=== PATIENT | male | born 1995 ===

== ENCOUNTER 2019-03-04 18:13 | Emergency (ER) | payer OTHER ==
--- NOTE | 2019-03-04 18:21 | UC ---
Complaint Male HPI - HPI Summary HPI Summary: 24 yo male presents with left testicle swelling. He tells me that 1 week ago he was playing basketball and had an inadvertent hand swat him in his testicles. Had immediate pain that only lasted a few minutes and he felt better. Did not have any pain, swelling, or urinary issues until 2 days ago when he noticed some mild left testicle and cord pain and he feels his left testicle is swollen. He has been sexually active over the last few weeks, but has been using condoms. Denies fever, chills, inguinal pain, dysuria, hematuria, penile discharge. - History of Current Complaint Chief Complaint: UCLowerExtremity Stated Complaint: GROIN COMPLAINT Time Seen by Provider: 03/04/19 18:21 Hx Obtained From: Patient Onset/Duration: Gradual Onset Severity Initially: Mild Severity Currently: Mild Pain Intensity: 2 Pain Scale Used: 0-10 Numeric - Allergies/Home Medications Allergies/Adverse Reactions: Allergies Allergy/AdvReac Type Severity Reaction Status Date / Time No Known Allergies Allergy Verified 03/04/19 18:22 Home Medications: Home Medications Thyroid,Pork [Penrose Thyroid] 60 mg PO 03/04/19 [History] PMH/Surg Hx/FS Hx/Imm Hx Endocrine History: Hypothyroidism - Surgical History Surgical History: None - Family History Known Family History: Positive: Non-Contributory - Social History Occupation: Student Lives: Dormitory/Roommates Alcohol Use: Occasionally Substance Use Type: None Smoking Status (MU): Never Smoked Tobacco Review of Systems All Other Systems Reviewed And Are Negative: No Constitutional: Positive: Negative Skin: Positive: Negative Respiratory: Positive: Negative Cardiovascular: Positive: Negative Genitourinary: Positive: Other - Testicular pain Neurovascular: Positive: Negative Neurological: Positive: Negative Psychological: Positive: Negative Physical Exam - Summary Physical Exam Summary: GENERAL: NAD. WDWN. No pain distress. SKIN: No rashes, sores, lesions, or open wounds. NECK: Supple. Nontender. No lymphadenopathy. CHEST: CTAB. No r/r/w. No accessory muscle use. Breathing comfortably and in no distress. CV: RRR. Without m/r/g. Pulses intact. Cap refill <2seconds ABDOMEN: Soft. NTTP. NEURO: Alert. PSYCH: Age appropriate behavior. Triage Information Reviewed: Yes Vital Signs: Vital Signs: Temp Pulse Resp BP Pulse Ox 99.0 F 73 18 152/97 100 03/04/19 18:17 03/04/19 18:17 03/04/19 18:17 03/04/19 18:17 03/04/19 18:17 Laboratory Tests 03/04/19 18:30 POC Urine Color Light yellow POC Urine Clarity Clear POC Urine pH 6.5 POC Ur Specif [place] 1.010 POC Urine Protein Negative POC Ur Glucose (UA) Negative POC Urine Ketones Negative POC Urine Blood Negative POC Urine Nitrite Negative POC Urine Bilirubin Negative POC Urine Urobilinogen 0.2 POC U Leukocyte Esteras Negative Vital Signs Reviewed: Yes Male Genital Exam: Positive: Normal Genitalia, No Hernia, Testicular Tenderness (L) - Mild. Negative: Epididymal Tenderness, Erythema, Hernia Mass, Inguinal Tenderness, Lesions, Scrotum Tenderness (R), Scrotum Tenderness (L), Urethral Discharge Diagnostics - Radiology US testicle Radiology Interpretation Completed By: Radiologist Summary of Radiographic Findings: IMPRESSION: 1. No testicular mass or visualized laceration. Color flow and vascular waveforms are documented bilaterally. 2. The left testicle is moderately hyperemic compared to the right as is the left epididymis. This may be related to contusions, or epididymitis and orchitis. 3. Normal minimal amount of fluid around both testicles. Complaint Male Course/Dx - Course Course Of Treatment: US results as above. Suspect contusion as pt had recent trauma to the area. Advised to rest and refrain from activities that involve his testicles such as intercourse and masturbation. Apply ice intermittently during the day to reduce swelling. F/u if symptoms worsen or do not improve - Differential Dx/Diagnosis Provider Diagnosis: Contusion of testicle Discharge ED - Sign-Out/Discharge Documenting (check all that apply): Patient Departure All imaging exams completed and their final reports reviewed: Yes - Discharge Plan Condition: Stable Disposition: HOME Patient Education Materials: Contusion in Adults (ED), Testicle Pain (ED) Referrals: No Primary Care Phys,NOPCP [Primary Care Provider] - Additional Instructions: If you develop a fever, shortness of breath, chest pain, new or worsening symptoms - please call your PCP or go to the ED immediately. Rest and apply ice to the area intermittently throughout the day to reduce swelling. If your symptoms have not improved in 7-10 days or if they worsen - please be rechecked - Billing Disposition and Condition Condition: STABLE Disposition: Home - Attestation Statements Provider Attestation: Per institutional requirements, I have reviewed the chart, however, I was not consulted specifically or made aware of this patient by the midlevel provider. I did not personally evaluate, interact with , or disposition this patient.
[2019-03-06 13:04] LABS: Chlamydia trachomatis NAA Negative (Negative); Neisseria gonorrhoeae (GC) NAA Negative (Negative)
--- NOTE | 2019-03-07 12:46 | UC ---
- Progress Note Progress Note: Mar 07 2019 GC/Chlam NEGATIVE> CALL PATIENT WITH RESULTS. Mehul Aviles MD Course/Dx - Diagnoses Provider Diagnoses: Contusion of testicle Discharge ED - Sign-Out/Discharge Documenting (check all that apply): Post-Discharge Follow Up All imaging exams completed and their final reports reviewed: Yes - Discharge Plan Condition: Stable Disposition: HOME Patient Education Materials: Contusion in Adults (ED), Testicle Pain (ED) Referrals: No Primary Care Phys,NOPCP [Primary Care Provider] - Additional Instructions: If you develop a fever, shortness of breath, chest pain, new or worsening symptoms - please call your PCP or go to the ED immediately. Rest and apply ice to the area intermittently throughout the day to reduce swelling. If your symptoms have not improved in 7-10 days or if they worsen - please be rechecked - Billing Disposition and Condition Condition: STABLE Disposition: Home
== END 2019-03-04 19:47 | disposition home or self-care (01) ==
LOC: UCEAST 18:13
DX: S30.22XA Contusion of scrotum and testes, initial encounter (principal); W50.0XXA Accidental hit or strike by another person, initial encounter; Y93.67 Activity, basketball; Y92.9 Unspecified place or not applicable; E03.9 Hypothyroidism, unspecified
CPT/HCPCS: 76870; 81003; 87491; 87591; 99201; G0463